=== PATIENT | male | born 1980 | race Two or more races ===

== ENCOUNTER 2017-10-01 20:02 | Emergency (ER) | payer SELFPAY ==
[2017-10-01] MEDS ORDERED: ONDANSETRON 4 MG TAB.RAPDIS PO ONE (22:17)
[2017-10-01] MEDS ORDERED: CLONIDINE 0.1 MG/24 HR PATCH.TDWK TD ONE (22:17)
[2017-10-01] MEDS ORDERED: LOPERAMIDE HCL 2 MG CAPSULE PO ONE (22:17)
--- NOTE | 2017-10-01 22:26 | ER Document Report ---
ED General - General Chief Complaint: Medical Clearance Stated Complaint: DETOX Time Seen by Provider: 10/01/17 22:09 Notes: Patient is a 37-year-old male past medical history heroin abuse since age 17, presents after he has been off his methadone for 3 days. He used some heroin to help his symptoms, but he is requesting detox. He recently moved down to [place] and was having trouble getting into the [facility] methadone clinic. He is having nausea, vomiting, diarrhea and shivering. Denies alcohol or benzo withdrawal. TRAVEL OUTSIDE OF THE [place] IN LAST 30 DAYS: No - Related Data Allergies/Adverse Reactions: No Known Allergies Allergy (Unverified 10/01/17 20:04) Past Medical History - General Information source: Patient - Social History Smoking Status: Current Every Day Smoker Drug Abuse: Heroin Family History: Reviewed & Not Pertinent Review of Systems - Review of Systems Notes: REVIEW OF SYSTEMS: CONSTITUTIONAL: -fevers, +chills EENT: -eye pain, -difficulty swallowing, -nasal congestion CARDIOVASCULAR: -chest pain, -syncope. RESPIRATORY: -cough, -SOB GASTROINTESTINAL: -abdominal pain, +nausea, +vomiting, +diarrhea GENITOURINARY: -dysuria, -hematuria MUSCULOSKELETAL: -back pain, -neck pain SKIN: -rash or skin lesions. HEMATOLOGIC: -easy bruising or bleeding. LYMPHATIC: -swollen, enlarged glands. NEUROLOGICAL: -altered mental status or loss of consciousness, -headache, - neurologic symptoms PSYCHIATRIC: -anxiety, -depression. ALL OTHER SYSTEMS REVIEWED AND NEGATIVE. Physical Exam - Vital signs Vitals: Temp Pulse Resp BP Pulse Ox 99.3 F 80 16 128/61 H 100 10/01/17 20:23 10/01/17 20:23 10/01/17 20:23 10/01/17 20:23 10/01/17 20:23 - Notes Notes: PHYSICAL EXAMINATION: GENERAL: In no acute distress. HEAD: Atraumatic, normocephalic. EYES: Pupils equal round and reactive to light, extraocular movements intact, sclera anicteric, conjunctiva are normal. ENT: nares patent, oropharynx clear without exudates. Moist mucous membranes. NECK: Normal range of motion, supple without lymphadenopathy LUNGS: Breath sounds clear to auscultation bilaterally and equal. No wheezes rales or rhonchi. HEART: Regular rate and rhythm without murmurs ABDOMEN: Soft, nontender, normoactive bowel sounds. No guarding, no rebound. No masses appreciated. EXTREMITIES: Normal range of motion, no pitting or edema. No cyanosis. NEUROLOGICAL: Cranial nerves grossly intact. Normal speech, normal gait. Normal sensory and motor exams. PSYCH: Normal mood, normal affect. SKIN: Warm, Dry, normal turgor, no rashes or lesions noted. Course - Re-evaluation Re-evalutation: Patient with signs and symptoms of opiate withdrawal. Provided him with outpatient resources as of the hospital does not have any inpatient detox facilities. Provide him with symptomatic treatment with clonidine, Zofran and Imodium. - Vital Signs Vital signs: Temp Pulse Resp BP Pulse Ox 99.3 F 80 16 128/61 H 100 10/01/17 20:23 10/01/17 20:23 10/01/17 20:23 10/01/17 20:23 10/01/17 20:23 Discharge - Discharge Clinical Impression: Opioid withdrawal Condition: Stable Disposition: HOME, SELF-CARE Additional Instructions: Call the resources provided for outpatient referral to detox. Use Zofran for nausea and Imodium for diarrhea. Prescriptions: Ondansetron [Zofran Odt 4 mg Tablet] 1 - 2 tab PO Q4H PRN #15 tab.rapdis PRN Reason: For Nausea/Vomiting Forms: Elevated Blood Pressure Referrals: [facility] [Outside] - Follow up as needed
[2017-10-01 22:56] VITALS: BP 120/75
== END 2017-10-01 22:56 | disposition home or self-care (01) ==
LOC: ER 20:02
DX: F11.23 Opioid dependence with withdrawal (principal); R11.2 Nausea with vomiting, unspecified; R19.7 Diarrhea, unspecified; R25.1 Tremor, unspecified; F17.200 Nicotine dependence, unspecified, uncomplicated
CPT/HCPCS: 99282; S0119; J3490

== ENCOUNTER 2017-10-05 10:17 | Emergency (ER) | payer SELFPAY ==
[2017-10-05 10:22] VITALS: BP 119/64
--- NOTE | 2017-10-05 10:42 | ER Document Report ---
ED General - General Mode of Arrival: Ambulatory Information source: Patient TRAVEL OUTSIDE OF THE [place] IN LAST 30 DAYS: No - General Chief Complaint: Vomiting Stated Complaint: POSSIBLE DEHYDRATION Time Seen by Provider: 10/05/17 10:29 Notes: Patient is a 37-year-old male who presents to the emergency department today with complaints of generalized weakness and vomiting. Patient states he recently moved down here from [place] and has been off of his methadone since moving down here 5 days ago. Patient states he does not wish to get back on that as he thinks he is through the worst of the withdrawal now. Patient states he has generalized weakness and vomiting. Patient states he has been unable to sleep the last few days as well. ([facility]) - Related Data Allergies/Adverse Reactions: No Known Allergies Allergy (Verified 10/05/17 10:28) Past Medical History - General Information source: Patient - Social History Smoking Status: Current Every Day Smoker Cigarette use (# per day): Yes Chew tobacco use (# tins/day): No Drug Abuse: Other - Methadone, Suboxone Family History: Reviewed & Not Pertinent Patient has suicidal ideation: No Patient has homicidal ideation: No - Medical History Medical History: Negative Renal/ Medical History: Denies: Hx Peritoneal Dialysis Surgical Hx: Negative Review of Systems - Review of Systems Constitutional: See HPI, Weakness EENT: No symptoms reported Cardiovascular: No symptoms reported Respiratory: No symptoms reported Gastrointestinal: See HPI, Vomiting Genitourinary: No symptoms reported Male Genitourinary: No symptoms reported Musculoskeletal: No symptoms reported Skin: No symptoms reported Hematologic/Lymphatic: No symptoms reported Neurological/Psychological: No symptoms reported -: Yes All other systems reviewed and negative Physical Exam - Vital signs Vitals: Temp Pulse Resp BP Pulse Ox 97.8 F 69 16 119/64 100 10/05/17 10:21 10/05/17 10:21 10/05/17 10:21 10/05/17 10:21 10/05/17 10:21 - Notes Notes: Physical Exam: General: Alert, appears well. HEENT: Normocephalic. Atraumatic. PERRL. Extraocular movements intact. Oropharynx clear. Neck: Supple. Non-tender. Respiratory: No respiratory distress. Clear and equal breath sounds bilaterally. Cardiovascular: Regular rate and rhythm. Abdominal: Normal Inspection. Non-tender. No distension. Normal Bowel Sounds. Back: Non-tender. No deformity or step off. Extremities: Moves all four extremities. Upper extremities: Normal inspection. Normal ROM. Lower extremities: Normal inspection. No edema. Normal ROM. Neurological: Normal cognition. AAOx4. Normal speech. Psychological: Normal affect. Normal Mood. Skin: Warm. Dry. Normal color. ([facility]SCAR) - Vital Signs Vital signs: Temp Pulse Resp BP Pulse Ox 97.8 F 69 16 119/64 100 10/05/17 10:21 10/05/17 10:21 10/05/17 10:21 10/05/17 10:21 10/05/17 10:21 Discharge - Discharge Condition: Good Disposition: HOME, SELF-CARE Instructions: Fatigue ([facility]) Prescriptions: Promethazine HCl 25 mg PO TID #20 tablet Ref[facility]: [facility] [NO LOCAL MD] - Follow up in 3-5 days (For primary care establishment, as re-evaluation) Scribe Attestation: 10/09/17 14:56 I personally performed the services described documentation, reviewed and edited the documentation which was dictated to describe my presence, and it accurately records my words and actions. 10/09/17 15:18 I personally performed the services described documentation, reviewed and edited the documentation which was dictated to describe my presence, and it accurately records my words and actions. (RONNIE FLOREZ) Scribe Documentation - Scribe Written by Scribe:: Libia Garcia, 10/05/2017 1054 acting as scribe for :: John
== END 2017-10-05 11:07 | disposition home or self-care (01) ==
LOC: ER 10:17
DX: R53.83 Other fatigue (principal); R11.10 Vomiting, unspecified; R53.1 Weakness; F17.210 Nicotine dependence, cigarettes, uncomplicated
CPT/HCPCS: 99283